=== PATIENT | female | born 1970 | race Caucasian/White ===

== ENCOUNTER 2021-06-11 09:41 | Inpatient (IN) ==
[2021-06-11 11:49] LABS: Basophils % 0.3 % (0.0-0.8); Eosinophils # 0.2 10*3/uL (0.0-0.87); Eosinophils % 4.7 % (0.00-10.9); Hematocrit 39.4 VOL% (35.7-47.0); Hemoglobin 13.3 GM/DL (12.0-16.0); Immature Granulocytes % 0.3 %; Immature Granulocytes Absolute 0.01 #; Lymphocytes # 0.6 10*3/uL (1.4-4.0); Mean Corpuscular HGB Conc 33.8 GM/DL (32-36); Mean Corpuscular Volume 90.2 FL (87-102); Mean Platelet Volume 12.1 FL (9.6-12.0); Neutrophils % 70.7 % (38.7-73.9); Platelet Count 93 T/CUMM (130-400); Red Blood Count 4.37 MC/CUMM (3.8-5.5); Red Cell Distribution Width 18.6 % (9.3-17.3); White Blood Count 3.8 T/CUMM (4-12)
[2021-06-11 12:00] LABS: INR 1.4; PT Patient Result 14.9 SECS (10.5-12.0); Partial Thromboplastin Time 35.3 SECS (23.9-33.8)
[2021-06-11 12:13] LABS: Bacteria,Urine Occasional /HPF (Few); Blood, Urine Small mg/dL (Negative); Glucose,Urine (UA) Negative (Negative); Hyaline Casts,Urine 5 /LPF (0-3); Ketones,Urine Negative (Negative); Mucus,Urine Few /LPF (Occasional); Nitrite,Urine Negative (Negative); Protein,Urine Negative; RBC,Urine 4 /HPF (0-4); Squamous Epithelial Cell,Urine Occasional /HPF (0-10); Urine Appearance CLEAR (Clear); Urine Color Amber (Yellow); Urine Specific Gravity 1.014 (1.001-1.035)
[2021-06-11 12:14] LABS: Bilirubin,Urine Moderate mg/dL (Negative)
[2021-06-11 12:16] LABS: Albumin 1.9 G/DL (3.4-5.0); Anisocytosis 2+; Calcium 7.7 MG/DL (8.5-10.1); Osmolality,Calculated 277.7 MOS/KG (273-304); Platelet Estimate Decreased; Potassium 2.9 MMOL/L (3.5-5.1)
[2021-06-11 12:17] LABS: Macrocytosis 1+
[2021-06-11 12:18] LABS: Bilirubin,Total 29.7 MG/DL (0.20-1.00)
[2021-06-11] MEDS ORDERED: DEXTROSE 50% 25 GM/50 ML VIAL IV PRN (13:16)
[2021-06-11] MEDS ORDERED: GLUCAGON 1 MG VIAL IM PRN (13:16)
[2021-06-11] MEDS ORDERED: DOCUSATE SODIUM 100 MG CAPSULE PO PRN (13:18)
[2021-06-11] MEDS: SODIUM CHLORIDE 0.45% 1,000 ML IV SCH (14:25)
[2021-06-11] MEDS ORDERED: PROMETHAZINE INJ 12.5 MG in SODIUM CHLORIDE 0.9% 50 ML IV PRN (17:02)
[2021-06-11] MEDS ORDERED: ACETAMINOPHEN 325 MG TABLET PO PRN (17:03)
[2021-06-11] MEDS ORDERED: FLUoxetine 20 MG CAPSULE PO ONE (17:04)
[2021-06-11] MEDS: ONDANSETRON 4 MG/2 ML VIAL IV PRN (17:21)
[2021-06-11] MEDS: MORPHINE 2 MG/1 ML SYRINGE IV PRN (17:21)
[2021-06-11 19:18] LABS: Hepatitis B Core IgM Quant 0.11 Index; Hepatitis B Surface Ag Quant < 0.10 Index; Hepatitis B Surface Ag Result Non-Reactive (NonReactive); Hepatitis C Virus Ab Quant > 11.00 Index
[2021-06-11 20:34] LABS: Hepatitis C Virus Ab Result Reactive (NonReactive)
[2021-06-12] MEDS: SODIUM CHLORIDE 0.45% 1,000 ML IV SCH ×2 (02:33→15:31)
[2021-06-12] MEDS: MORPHINE 2 MG/1 ML SYRINGE IV PRN ×4 (03:00→21:38)
[2021-06-12] MEDS: ONDANSETRON 4 MG/2 ML VIAL IV PRN ×3 (03:45→21:38)
[2021-06-12 06:17] LABS: Eosinophils # 0.2 10*3/uL (0.0-0.87); Eosinophils % 6.6 % (0.00-10.9); Hematocrit 34.6 VOL% (35.7-47.0); Hemoglobin 11.7 GM/DL (12.0-16.0); Immature Granulocytes % 0.7 %; Immature Granulocytes Absolute 0.02 #; Lymphocytes # 0.6 10*3/uL (1.4-4.0); Lymphocytes % 20.8 % (21.3-54.2); Mean Corpuscular HGB Conc 33.8 GM/DL (32-36); Mean Corpuscular Volume 90.1 FL (87-102); Mean Platelet Volume 12.5 FL (9.6-12.0); Monocytes % 9.5 % (1.7-12.7); Neutrophils % 62.4 % (38.7-73.9); Platelet Count 67 T/CUMM (130-400); Red Blood Count 3.84 MC/CUMM (3.8-5.5); Red Cell Distribution Width 18.5 % (9.3-17.3); White Blood Count 2.7 T/CUMM (4-12)
[2021-06-12 06:19] LABS: INR 1.3; PT Patient Result 14.8 SECS (10.5-12.0)
[2021-06-12 06:42] LABS: Albumin 1.7 G/DL (3.4-5.0); Calcium 7.4 MG/DL (8.5-10.1); Osmolality,Calculated 274.7 MOS/KG (273-304); Total Protein 4.2 G/DL (6.4-8.2)
[2021-06-12 06:45] LABS: Potassium 2.5 MMOL/L (3.5-5.1)
[2021-06-12 06:50] LABS: Platelet Estimate Decreased
[2021-06-12 06:51] LABS: Anisocytosis 2+
[2021-06-12] MEDS: POTASSIUM CHLORIDE RIDER 10 MEQ/100 ML PREMIX IV PRN ×7 (06:51→23:56)
[2021-06-12 06:52] LABS: Burr Cells Few; Ovalocytes Few
[2021-06-12 06:54] LABS: Macrocytosis 2+
[2021-06-12] MEDS: FLUoxetine 20 MG CAPSULE PO SCH (11:16)
[2021-06-12] MEDS: PANTOPRAZOLE 40 MG VIAL IV SCH (11:16)
[2021-06-12] MEDS: hydrOXYzine HCL 25 MG TABLET PO PRN ×2 (12:46→12:48)
[2021-06-12] MEDS ORDERED: POTASSIUM CHLORIDE 20 MEQ TABLET PO ONE (13:57)
[2021-06-12] MEDS: POTASSIUM CHLORIDE 20 MEQ TABLET PO SCH (20:46)
[2021-06-13] MEDS: POTASSIUM CHLORIDE RIDER 10 MEQ/100 ML PREMIX IV PRN ×7 (01:26→15:47)
[2021-06-13] MEDS: ONDANSETRON 4 MG/2 ML VIAL IV PRN ×3 (03:35→19:54)
[2021-06-13] MEDS: MORPHINE 2 MG/1 ML SYRINGE IV PRN ×3 (03:37→19:53)
[2021-06-13] MEDS: SODIUM CHLORIDE 0.45% 1,000 ML IV SCH ×2 (05:10→23:17)
[2021-06-13 06:01] LABS: Eosinophils # 0.2 10*3/uL (0.0-0.87); Eosinophils % 7.5 % (0.00-10.9); Hematocrit 34.7 VOL% (35.7-47.0); Hemoglobin 11.8 GM/DL (12.0-16.0); Immature Granulocytes % 0.4 %; Immature Granulocytes Absolute 0.01 #; Lymphocytes # 0.5 10*3/uL (1.4-4.0); Lymphocytes % 19.6 % (21.3-54.2); Mean Corpuscular Volume 90.4 FL (87-102); Mean Platelet Volume 11.7 FL (9.6-12.0); Monocytes % 8.2 % (1.7-12.7); Neutrophils % 64.3 % (38.7-73.9); Platelet Count 62 T/CUMM (130-400); Red Blood Count 3.84 MC/CUMM (3.8-5.5); Red Cell Distribution Width 18.8 % (9.3-17.3); White Blood Count 2.6 T/CUMM (4-12)
[2021-06-13 06:36] LABS: Albumin 1.7 G/DL (3.4-5.0); Calcium 7.5 MG/DL (8.5-10.1); Potassium 3.5 MMOL/L (3.5-5.1); Total Protein 4.4 G/DL (6.4-8.2)
[2021-06-13 06:39] LABS: Bilirubin,Total 26.3 MG/DL (0.20-1.00)
[2021-06-13] MEDS: FLUoxetine 20 MG CAPSULE PO SCH (09:16)
[2021-06-13] MEDS: PANTOPRAZOLE 40 MG VIAL IV SCH (09:16)
[2021-06-13] MEDS: LACTULOSE 20 GM/30 ML UDCUP PO SCH ×3 (09:16→21:33)
[2021-06-13] MEDS: POTASSIUM CHLORIDE 20 MEQ TABLET PO SCH ×2 (09:16→20:56)
[2021-06-13] MEDS: RIFAXIMIN 550 MG TABLET PO SCH ×2 (10:55→20:56)
[2021-06-14] MEDS: ONDANSETRON 4 MG/2 ML VIAL IV PRN ×2 (03:11→11:51)
[2021-06-14] MEDS: MORPHINE 2 MG/1 ML SYRINGE IV PRN ×3 (03:13→20:13)
[2021-06-14 06:23] LABS: Eosinophils # 0.2 10*3/uL (0.0-0.87); Eosinophils % 8.9 % (0.00-10.9); Hematocrit 36.4 VOL% (35.7-47.0); Hemoglobin 12.3 GM/DL (12.0-16.0); Immature Granulocytes % 0.4 %; Immature Granulocytes Absolute 0.01 #; Lymphocytes # 0.5 10*3/uL (1.4-4.0); Lymphocytes % 16.6 % (21.3-54.2); Mean Corpuscular HGB Conc 33.8 GM/DL (32-36); Mean Corpuscular Volume 89.9 FL (87-102); Mean Platelet Volume 11.4 FL (9.6-12.0); Monocytes % 8.9 % (1.7-12.7); Neutrophils % 65.2 % (38.7-73.9); Platelet Count 73 T/CUMM (130-400); Red Blood Count 4.05 MC/CUMM (3.8-5.5); Red Cell Distribution Width 19.1 % (9.3-17.3); White Blood Count 2.7 T/CUMM (4-12)
[2021-06-14 07:04] LABS: Albumin 1.8 G/DL (3.4-5.0); Calcium 7.7 MG/DL (8.5-10.1); Osmolality,Calculated 272.8 MOS/KG (273-304); Potassium 3.3 MMOL/L (3.5-5.1); Total Protein 4.6 G/DL (6.4-8.2)
[2021-06-14 07:05] LABS: Bilirubin,Total 28.3 MG/DL (0.20-1.00)
[2021-06-14 07:21] LABS: Anisocytosis 2+; Burr Cells Few; Macrocytosis 1+; Platelet Estimate Decreased; Tear Drop Cells Few
[2021-06-14] MEDS: FLUoxetine 20 MG CAPSULE PO SCH (09:32)
[2021-06-14] MEDS: PANTOPRAZOLE 40 MG VIAL IV SCH (09:32)
[2021-06-14] MEDS: POTASSIUM CHLORIDE RIDER 10 MEQ/100 ML PREMIX IV PRN ×4 (09:33→16:05)
[2021-06-14] MEDS: POTASSIUM CHLORIDE 20 MEQ TABLET PO SCH ×2 (09:33→20:12)
[2021-06-14] MEDS: RIFAXIMIN 550 MG TABLET PO SCH ×2 (09:33→20:12)
[2021-06-14] MEDS: LACTULOSE 20 GM/30 ML UDCUP PO SCH ×2 (11:13→20:12)
[2021-06-14] MEDS: SODIUM CHLORIDE 0.45% 1,000 ML IV SCH ×2 (13:29→23:27)
[2021-06-15] MEDS: ONDANSETRON 4 MG/2 ML VIAL IV PRN (01:35)
[2021-06-15] MEDS: MORPHINE 2 MG/1 ML SYRINGE IV PRN ×3 (01:39→10:46)
[2021-06-15 05:21] LABS: Eosinophils # 0.2 10*3/uL (0.0-0.87); Eosinophils % 7.9 % (0.00-10.9); Hematocrit 34.4 VOL% (35.7-47.0); Hemoglobin 11.5 GM/DL (12.0-16.0); Immature Granulocytes % 0.4 %; Immature Granulocytes Absolute 0.01 #; Lymphocytes # 0.5 10*3/uL (1.4-4.0); Lymphocytes % 19.8 % (21.3-54.2); Mean Corpuscular HGB Conc 33.4 GM/DL (32-36); Mean Corpuscular Volume 90.8 FL (87-102); Mean Platelet Volume 12.8 FL (9.6-12.0); Monocytes % 7.9 % (1.7-12.7); Platelet Count 68 T/CUMM (130-400); Red Blood Count 3.79 MC/CUMM (3.8-5.5); Red Cell Distribution Width 19.4 % (9.3-17.3); White Blood Count 2.5 T/CUMM (4-12)
[2021-06-15 05:29] LABS: INR 1.4; PT Patient Result 15.2 SECS (10.5-12.0)
[2021-06-15 05:44] LABS: Hypochromasia 1+; Microcytosis 1+; Platelet Estimate Decreased
[2021-06-15 05:51] LABS: Albumin 1.7 G/DL (3.4-5.0); Calcium 7.6 MG/DL (8.5-10.1); Osmolality,Calculated 280.3 MOS/KG (273-304); Potassium 3.6 MMOL/L (3.5-5.1); Total Protein 4.2 G/DL (6.4-8.2)
[2021-06-15 05:53] LABS: Bilirubin,Total 26.1 MG/DL (0.20-1.00)
[2021-06-15] MEDS: FLUoxetine 20 MG CAPSULE PO SCH (09:54)
[2021-06-15] MEDS: POTASSIUM CHLORIDE 20 MEQ TABLET PO SCH (09:54)
[2021-06-15] MEDS: PANTOPRAZOLE 40 MG VIAL IV SCH (09:54)
[2021-06-15] MEDS: RIFAXIMIN 550 MG TABLET PO SCH (09:54)
[2021-06-15] MEDS: LACTULOSE 20 GM/30 ML UDCUP PO SCH (09:54)
[2021-06-15 12:21] VITALS: BP 126/71
[2021-06-15 14:06] LABS: Mitochondrial Antibody (M2) <0.1 U
[2021-06-16 12:16] LABS: Antinuclear Ab, S 0.6 U
== END 2021-06-15 16:40 | disposition home health service (06) ==
LOC: N.ED 09:41 → N.EDINP 09:41 → N.3E 15:48 → SUATTDRO 06-13 08:57
PROVIDERS: ADMIT Hospitalist; ATTEND Internal Medicine

== ENCOUNTER 2021-08-09 10:17 | Inpatient (IN) ==
[2021-08-09] MEDS ORDERED: EPINEPHrine 1 MG/10 ML SYRINGE ONE (11:12)
[2021-08-09] MEDS ORDERED: SODIUM CHLORIDE 0.9% 1,000 ML IV STA ×2 (11:26→13:13)
[2021-08-09 12:02] LABS: ABG Base Excess -26.2 MMOL/L (-2.5-2.5); ABG HCO3 7.1 MMOL/L (20-26); ABG Oxygen Saturation 96.3 % (95-100); ABG PCO2 51.5 MM HG (35-48); ABG TCO2 9.1 MMOL/L (23-27)
[2021-08-09] MEDS ORDERED: SODIUM BICARBONATE 50 MEQ/50 ML VIAL IV STA (12:19)
[2021-08-09] MEDS ORDERED: SODIUM BICARBONATE 50 MEQ/50 ML VIAL IV ONE (12:21)
[2021-08-09] MEDS ORDERED: NOREPINEPHRINE 4 MG/4 ML VIAL IV ONE ×3 (12:21→16:56)
[2021-08-09] MEDS: NOREPINEPHRINE 8 MG in SODIUM CHLORIDE 0.9% 242 ML IV PRN ×2 (12:35→16:00)
[2021-08-09] MEDS ORDERED: SODIUM CHLORIDE 0.9% 1,000 ML IV ONE (12:50)
[2021-08-09 13:37] LABS: Alanine Aminotransferase 91 U/L (13-56); Albumin 1.4 G/DL (3.4-5.0); Alkaline Phosphatase 135 U/L (45-117); Aspartate Amino Transferase 195 U/L (0-37); Blood Urea Nitrogen 22 MG/DL (7-18); Carbon Dioxide 12 MMOL/L (21-32); Estimated Glom Filtration Rate 52 ML/MIN; Osmolality,Calculated 271.8 MOS/KG (273-304); Potassium 3.4 MMOL/L (3.5-5.1); Sodium 137 MMOL/L (136-145); Total Protein 3.5 G/DL (6.4-8.2)
[2021-08-09 13:41] LABS: Glucose 33 MG/DL (74-106)
[2021-08-09] MEDS ORDERED: DEXTROSE 50% 25 GM/50 ML SYRINGE IV ONE ×2 (13:43→14:25)
[2021-08-09 13:50] LABS: Basophils # 0.1 10*3/uL (0.0-0.2); Basophils % 0.5 % (0.0-0.8); Eosinophils # 0.8 10*3/uL (0.0-0.87); Eosinophils % 7.9 % (0.00-10.9); Hematocrit 41.4 VOL% (35.7-47.0); Immature Granulocytes % 10.3 %; Immature Granulocytes Absolute 1.01 #; Lymphocytes # 3.5 10*3/uL (1.4-4.0); Lymphocytes % 35.6 % (21.3-54.2); Mean Corpuscular HGB Conc 29.7 GM/DL (32-36); Mean Corpuscular Volume 112.8 FL (87-102); Monocytes % 8.1 % (1.7-12.7); Neutrophils % 37.6 % (38.7-73.9); Platelet Count 111 T/CUMM (130-400); Red Blood Count 3.67 MC/CUMM (3.8-5.5); Red Cell Distribution Width 16.4 % (9.3-17.3); White Blood Count 9.8 T/CUMM (4-12)
[2021-08-09 13:52] LABS: Hemoglobin 12.3 GM/DL (12.0-16.0)
[2021-08-09 14:04] LABS: CKMB % 1.8 %; High Sensitive Troponin I* 31.8 ng/L (0-54)
[2021-08-09 14:09] LABS: INR 2.9; PT Patient Result 29.5 SECS (10.5-12.0)
[2021-08-09 14:30] LABS: Partial Thromboplastin Time 123.3 SECS (23.8-32.1)
[2021-08-09] MEDS ORDERED: ALBUTEROL 2.5 MG/3 ML NEB RESP TX PRN (14:53)
[2021-08-09] MEDS ORDERED: PANTOPRAZOLE 40 MG VIAL IV SCH (15:00)
[2021-08-09] MEDS ORDERED: SODIUM BICARB INJ 100 MEQ in DEXTROSE 5% 1,000 ML IV SCH (15:00)
[2021-08-09] MEDS ORDERED: DEXTROSE 50% 25 GM/50 ML VIAL IV STA (15:51)
[2021-08-09] MEDS ORDERED: DEXTROSE 50% 25 GM/50 ML VIAL IV ONE (15:55)
[2021-08-09] MEDS ORDERED: ALBUMIN 25% 25 GM/100 ML VIAL IV SCH (16:00)
[2021-08-09] MEDS ORDERED: SODIUM BICARB INJ 150 MEQ in DEXTROSE 5% 1,000 ML IV SCH (16:00)
[2021-08-09 16:15] VITALS: BP 81/66
[2021-08-09 16:16] LABS: ABG Base Excess -23.5 MMOL/L (-2.5-2.5); ABG HCO3 8.4 MMOL/L (20-26); ABG PCO2 45.6 MM HG (35-48); ABG TCO2 9.5 MMOL/L (23-27)
[2021-08-09 16:18] LABS: ABG PH 6.938 (7.35-7.45)
[2021-08-09] MEDS ORDERED: VASOPRESSIN 100 UNITS in SODIUM CHLORIDE 0.9% 95 ML IV PRN (16:23)
[2021-08-09 16:58] LABS: CKMB % 1.4 %
[2021-08-09 17:06] LABS: High Sensitive Troponin I* 66.3 ng/L (0-54)
[2021-08-09] MEDS ORDERED: MORPHINE 2 MG/1 ML SYRINGE IV PRN (17:08)
[2021-08-09] MEDS ORDERED: LORazepam 2 MG/1 ML VIAL IV PRN (17:08)
[2021-08-09] MEDS ORDERED: MORPHINE 2 MG/1 ML SYRINGE ONE ×2 (17:10→17:20)
[2021-08-09] MEDS ORDERED: LORazepam 2 MG/1 ML VIAL ONE (17:10)
[2021-08-09 18:26] LABS: Band Neutrophils 9 % (0-10); Eosinophils 10 % (0-10); Lymphocytes 49 % (20-55); Nucleated Red Blood Cells 11 (0-5); Segmented Neutrophils 28 % (50-85); Total Cells Counted 100
[2021-08-09 18:27] LABS: Platelet Estimate Adequate
[2021-08-09 18:28] LABS: Macrocytosis 1+; Ovalocytes Slight; Polychromasia 1+; Schistocytes Slight
[2021-08-09] MEDS ORDERED: LACTULOSE 320 GM/480 ML BOTTLE RECTAL SCH (21:00)
== END 2021-08-09 17:29 | disposition expired ==
LOC: N.ED 10:17 → SUATTDRO 14:53 → N.EDINP 14:53 → N.ICU 15:24
PROVIDERS: ADMIT Internal Medicine; ATTEND Internal Medicine